=== PATIENT | male | born 1955 | race Caucasian/White ===

== ENCOUNTER → 2017-04-11 | Day surgery (SDC) | payer OTHER ==
[~2017-04-11] MED LIST: BUPIVACAINE/EPINEPHRINE 0.25% 50 ML VIAL ONE; KETOROLAC TROMETHAMINE 30 MG/ML (IVP) VIAL IV PUSH ONE; LACTATED RINGER'S 1000 ML INJ 1,000 ML ONE; MIDAZOLAM HCL 2 MG/2 ML VIAL ONE; NEOMYCIN/POLYMYXIN/BACITRACIN OINT 15 GM TUBE ONE; ONDANSETRON HCL 4 MG/2 ML VIAL IV PUSH ONE; PROPOFOL 200 MG/20 ML AMP IV ONE; ceFAZolin 2 GM PREMIX 50 ML ONE
--- NOTE | 2017-04-11 13:18 | TN ---
cc: DUANE ESPANA M.D. DATE OF SURGERY: 04/11/2017 PREOPERATIVE DIAGNOSIS 1. Enlarging symptomatic left inguinal hernia. 2. Enlarging symptomatic supraumbilical hernia. POSTOPERATIVE DIAGNOSIS 1. Enlarging symptomatic left inguinal hernia. 2. Enlarging symptomatic supraumbilical hernia. 3. Indirect left inguinal hernia with intestine. 4. Supraumbilical hernia with chronically incarcerated omentum. PROCEDURE PERFORMED 1. Laparoscopic left inguinal hernia repair with mesh. 2. Open umbilical hernia repair with mesh. SURGEON Duane Espana. HV[employer] RESIDENTIAL SERVICE TECHNICIAN Kristen Nair MD ANESTHESIA General LMA. COMPLICATIONS None. INDICATION FOR PROCEDURE Mr. Fairchild is a very pleasant 61-year-old gentleman who had a symptomatic enlarging moderate-sized left inguinal hernia as well as a supraumbilical hernia. He was seen and evaluated in the office. He was found to have a chronically incarcerated umbilical hernia with what appeared to be fat. He had a left inguinal hernia that appeared to have some intestine in it. He was offered elective repair. The risks and benefits of open and laparoscopic repair was discussed with him and he was agreeable. DETAILS OF PROCEDURE The patient was identified, brought to the operating and placed supine on the operating table. After adequate general anesthesia was achieved with an LMA, the anterior abdomen and groin was prepped and draped in standard surgical fashion. The infraumbilical space was anesthetized with 0.25% Marcaine. An infraumbilical incision was made. Dissection was carried down through subcutaneous tissue to the anterior rectus fascia. The anterior rectus fascia was then incised vertically off the midline. The rectus muscle was retracted laterally and the preperitoneal space was entered with blunt dissection. A blunt dissecting balloon was inserted and insufflated with 30 pumps of air under direct vision using the 0-degree laparoscope. Next, the balloon dissector was removed and the balloon trocar inserted. The preperitoneal space was insufflated to 11 mmHg using CO2 gas. Next, two 5 mm trocars were placed in the lower midline under direct vision. Attention was first directed medially at Lamin's ligament and pubic tubercle. Dissection proceeded out laterally identifying a large indirect inguinal hernia. There appeared to be some bowel and omentum within the hernia sac. We therefore applied some gentle external pressure and the bowel and omentum reduced back into the abdominal cavity. The hernia sac was then followed. It was carefully dissected out of the inguinal canal using a [id number] technique. Once the end of the sac was identified it was stripped back and away from the cord structures several centimeters past the internal ring. Once we did this a posterior window was made behind the cord structures. A piece of polypropylene mesh was inserted with a slit cut for the cord structures. Mesh was placed through the posterior window and the slit re-approximated with the ProTack'ing device. The mesh was then secured medially at Lamin's ligament and pubic tubercle and superiorly along the posterior abdominal wall fascia. An onlay mesh was then placed over the first mesh in order to buttress the slit. This mesh was secured medially and laterally. With this the indirect and direct spaces were well-covered with mesh with generous overlap. 0.25% Marcaine was injected in the operative site. Next, the peritoneal sac was held up and the inferior border of the mesh was held down and the preperitoneal space was desufflated. The peritoneum was found to overlie the mesh, again with excellent coverage of the indirect and direct spaces. All trocars were removed under direct vision. The anterior rectus fascia was repaired with 0 Vicryl in a [id number] fashion. Attention was directed to the umbilical hernia. The umbilical stalk and hernia was dissected circumferentially. The stalk was then transected off of the hernia sac. The hernia sac was opened and found to contain chronically incarcerated omentum. This was reduced back into the abdominal cavity. The defect was closed with 2-0 Vicryl suture. The abdominal fascia was then cleaned off circumferentially and inspected. The abdominal fascia was of good quality. The defect measured about 1-2 cm admitting a finger into the defect. Next, attention was directed to a two-layer repair. First the fascia was re-approximated primarily using a 0 Prolene interrupted x3. Once we did this an onlay mesh was placed and the mesh was sutured down in the four corners with generous overlap of mesh over the defect using a 2-0 Prolene suture. Additional stay sutures were placed on the superior and inferior midpoint of the mesh. With this the defect was covered in two layers. The wound was copiously irrigated with normal saline solution. The umbilical stalk was then tacked down to the abdominal wall using 2-0 Vicryl. The subcutaneous tissue was closed with 2-0 and 3-0 Vicryl in layers. Skin was closed with 4-0 Vicryl. Sterile dressings were applied and the patient was awakened and brought to Recovery in stable condition. MD SHAINA Tian /12:40 PM /1:01 PM
== END | disposition home or self-care (01) ==
LOC: ESDC 08:51
PROVIDERS: ATTEND Surgery Trauma Surgery
DX: K40.90 Unilateral inguinal hernia, without obstruction or gangrene, not specified as recurrent (principal); K43.6 Other and unspecified ventral hernia with obstruction, without gangrene
CPT/HCPCS: 00840; 49587; 49650; C1727; C1781; J0690; J1885; J2250; J2405; J3010; J7120